=== PATIENT | female | born 1950 | race Caucasian/White ===

== ENCOUNTER → 2022-05-18 | Outpatient (CLI) | payer MEDICARE ==
--- NOTE | 2022-05-18 11:07 | BD ---
EXAMINATION TYPE: Axial Bone Density DATE OF EXAM: 05/18/2022 COMPARISON: FIRST DEXA AT [facility] [place] [facility] CLINICAL HISTORY: 71 years year old Female. ICD-10 CODE: Z78.0 MENOPAUSAL STATE Height: 70IN Weight: 166LB FRAX RISK QUESTIONS: Family History (Parent hip fracture): YES Secondary Osteoporosis: YES 3. Menopause before 45: YES RISK FACTORS HISTORY OF: Surgery to Wrist (right/left): [facility] CARPAL TUNNEL SURGERY When: Family History of Osteoporosis: YES Active: YES Postmenopausal woman: YES TOTAL HYSTERECTOMY AT 44 YRS Take estrogen and/or progesterone medications: YES, NONE CURRENTLY How lon YEARS MEDICATIONS: Additional Medications: CHOLESTEROL MED, CALCIUM WITH VITAMIN D Additional History: EXAM MEASUREMENTS: Bone mineral densitometry was performed using the [employer]. Bone mineral density as measured about the Lumbar spine is: ----- L1-L4(G/cm2): 1.123 T Score Values are as follows: ----- L1: -1.7 ----- L2: -0.9 ----- L3: 0.5 ----- L4: -0.1 ----- L1-L4: -0.5 FIRST DEXA AT [facility] [place] [facility] Bone mineral density about the R hip (g/cm2): 0.777 Bone mineral density about the L hip (g/cm2): 0.824 T Score values are as follows: -----R Neck: -1.5 -----L Neck: -1.2 -----R Total: -1.8 -----L Total: -1.5 FRAX%s: The graph provided illustrates a 15.3% chance for a major osteoporotic fx and a 2.8% chance f or the hips probability for fx in 10 years time. IMPRESSION: Osteopenia (T Score between -2.5 and -1). There is slightly increased risk of fracture and the patient may be considered for treatment. Re-Screen 2-5 years. NOTE: T-SCORE=SD OF THE YOUNG ADULT MEAN.
== END | disposition home or self-care (01) ==
LOC: RADBDWWP 10:33
PROVIDERS: ATTEND Family Medicine
DX: M85.89 Other specified disorders of bone density and structure, multiple sites (principal); Z78.0 Asymptomatic menopausal state
CPT/HCPCS: 77080

== ENCOUNTER → 2023-10-29 | Outpatient (CLI) | payer MEDICARE ==
--- NOTE | 2023-10-31 12:57 | MR ---
EXAMINATION TYPE: MR lumbar spine wo con DATE OF EXAM: 10/29/2023 COMPARISON: NONE HISTORY: No prior, low back pain with some right hip discomfort for 2 months , no injury no sx TECHNIQUE: Multiplanar, multisequence imaging of the lumbar spine is performed without IV contrast. FINDINGS: Sagittal images of the lumbar spine show vertebral body height to appear satisfactory. Ther e is dextroconvex scoliosis centered at L2 level . There is slight grade 1 retrolisthesis L2 on L3. T here is multilevel disc desiccation. There is moderate disc space narrowing and vacuum disc phenomeno n and heterogeneous Modic type I endplate changes at L2-L3 level. There is moderate disc space narrow ing with disc phenomenon and heterogeneous Modic type II endplate changes at L5-S1 level.. The conus medullaris is normal in position and signal ending mid L1 level. Axial images at T12-L1 level appear within normal limits. Axial images at L1-L2 level show mild broad disc bulge mildly effacing the anterior thecal sac. Paten t bilateral neural foramina. Axial images L2-L3 level shows spondylosis with moderate broad disc bulge effacing the anterior theca l sac and mild facet arthropathy and ligamentum flavum hypertrophy slightly effacing the posterior la teral thecal sac. Bilateral neural foramina remain patent. Axial images at L3-L4 level show mild broad-based posterior disc protrusion minimally effacing the an terior thecal sac with moderate facet arthropathy and ligamentum flavum hypertrophy effacing the post erior lateral thecal sac. Bilateral neural foramina are patent. Axial images at L4-L5 level show mild to moderate right greater than left facet arthropathy effacing the posterior lateral thecal sac. There is mild broad-based posterior disc protrusion mildly effaces the anterior thecal sac. There is mild right greater than left bilateral anterior inferior neural for aminal narrowing. Axial images at L5-S1 level show [id number] broad disc bulge and facet arthropathy bilaterally. There is minimal effacement of the anterior thecal sac. There is mild to moderate right greater than left bilateral neural foraminal narrowing. Paraspinal muscle bulk is preserved. IMPRESSION: Multilevel spondylolisthesis and degenerative change in the lumbar spine as detailed yohan asher
== END | disposition home or self-care (01) ==
LOC: RADMRIMAIN 10:38
PROVIDERS: ATTEND Physical Medicine & Rehabilitation
DX: M47.816 Spondylosis without myelopathy or radiculopathy, lumbar region (principal); M43.16 Spondylolisthesis, lumbar region
CPT/HCPCS: 72148

== ENCOUNTER → 2023-12-13 | Outpatient (CLI) | payer MEDICARE ==
--- NOTE | 2024-01-03 09:54 | MM ---
Reason for Exam: Clinical finding. Last mammogram was performed 1 year(s) and 10 month(s) ago. Indicated Problems: Pain of the right side (Global) for 3 Week(s). Patient History: Menarche at age 15. Patient has no children. Left ovary removed at age 45. Right ovary removed at age 45. Hysterectomy at age 45. Patient used Estrogen for 5 years. Patient used Hormonal Contraceptives for 2 years. 1992, Excisional Biopsy on the Left side. 1992, Excisional Biopsy on the Right side. 1986, Excisional Biopsy on the Right side. Maternal cousin had breast cancer at or over age 50. Maternal cousin had breast cancer at or over age 50. Sister had breast cancer. Risk Values: Sandra 5 year model risk: 5.1%. NCI Lifetime model risk: 13.6%. Prior Study Comparison: 02/06/2020 Bilateral Screening Mammogram, [facility]. 02/13/2021 Bilateral Screening Mammogram, [facility]. 02/18/2022 Bilateral Screening Mammogram, [facility]. Tissue Density: The breasts are heterogeneously dense, which may obscure small masses. Findings: Analyzed By CAD. No evidence for mass or distortion. No suspicious calcifications. Manage clinically with regards to clinical symptoms. Overall Assessment: Negative, BI-RAD 1 Management: Screening Mammogram of both breasts in 1 year. . Results were given to the patient verbally at the time of exam. Patient should continue monthly self-breast exams. A clinical breast exam by your physician is recommended on an annual basis. This exam should not preclude additional follow-up of suspicious palpable abnormalities. Note on Sandra scores and lifetime risk: 1. A Sandra score greater than 3% is considered moderate risk. If this is the case, consider specialist referral to assess eligibility for a risk reducing agent. 2. If overall lifetime risk for the development of breast cancer is 20% or higher, the patient may qualify for future screening with alternating mammogram and breast MRI. Electronically signed and approved by: Laith Byrnes M.D. Radiologis
== END | disposition home or self-care (01) ==
LOC: RADMAMWWP 12:58
PROVIDERS: ATTEND Family Medicine
DX: Z12.31 Encounter for screening mammogram for malignant neoplasm of breast (principal); N64.4 Mastodynia; R92.333 Mammographic heterogeneous density, bilateral breasts; Z80.3 Family history of malignant neoplasm of breast
CPT/HCPCS: 77066; G0279; 77062

== ENCOUNTER → 2024-12-13 | Outpatient (CLI) | payer MEDICARE ==
--- NOTE | 2024-12-13 10:40 | MM ---
Reason for Exam: Screening (asymptomatic). Last screening mammogram was performed 12 month(s) ago. Patient History: Menarche at age 15. Patient has no children. Left ovary removed at age 45. Right ovary removed at age 45. Hysterectomy at age 45. Patient used Estrogen for 5 years. Patient used Hormonal Contraceptives for 2 years. 1992, Excisional Biopsy on the Left side. 1992, Excisional Biopsy on the Right side. 1986, Excisional Biopsy on the Right side. Maternal cousin had breast cancer at or over age 50. Maternal cousin had breast cancer at or over age 50. Sister had breast cancer. Risk Values: Sandra 5 year model risk: 5.2%. NCI Lifetime model risk: 13.0%. Prior Study Comparison: 02/13/2021 Bilateral Screening Mammogram, [facility]. 02/18/2022 Bilateral Screening Mammogram, [facility]. 12/13/2023 Bilateral MG 3D diag mammo w/cad [facility], [facility]. Tissue Density: The breasts are extremely dense, which lowers the sensitivity of mammography. Findings: Analyzed By CAD. There is no suspicious group of microcalcifications or new suspicious mass in either breast. Overall Assessment: Benign, BI-RAD 2 Management: Screening Mammogram of both breasts in 1 year. . Patient should continue monthly self-breast exams. A clinical breast exam by your physician is recommended on an annual basis. This exam should not preclude additional follow-up of suspicious palpable abnormalities. Note on Sandra scores and lifetime risk: 1. A Sandra score greater than 3% is considered moderate risk. If this is the case, consider specialist referral to assess eligibility for a risk reducing agent. 2. If overall lifetime risk for the development of breast cancer is 20% or higher, the patient may qualify for future screening with alternating mammogram and breast MRI. [facility], , 12/13/2024 10:37 AM. Electronically signed and approved by: Mariano Tam M.D. Radiologis
== END | disposition home or self-care (01) ==
LOC: RADMAMWWP 10:09
PROVIDERS: ATTEND Family Medicine
DX: Z12.31 Encounter for screening mammogram for malignant neoplasm of breast (principal); R92.343 Mammographic extreme density, bilateral breasts; Z80.3 Family history of malignant neoplasm of breast; Z92.0 Personal history of contraception
CPT/HCPCS: 77063; 77067